=== PATIENT | female | born 1965 | race Caucasian/White ===

== ENCOUNTER → 2021-07-08 | Outpatient (CLI) | payer OTHER ==
--- NOTE | 2021-07-08 14:39 | RAD ---
PROCEDURE: US BREAST LT, MG DIAGNOSTICUNILAT MAMMO HISTORY: The patient is 55 years old and is seen for Reason: ABNORMAL MAMMO / Spl. Instructions: / H istory: . COMPARISON: May 08, 2021. The patient states there are prior mammograms in [place]. TECHNIQUE: Left breast spot compression views and ML view. Targeted left breast ultrasound. DENSITY: There are scattered fibroglandular densities. FINDINGS: Left mammogram: Well-circumscribed mass within the left breast 3:00 position measures 0.4 x 0.4 cm. T here is associated amorphous calcifications. Left breast implant noted. Left ultrasound: Hypoechoic well-circumscribed mass within the left breast 3:00 position 1 cm from th e nipple measures 0.4 x 0.3 cm. Calcification is noted. No suspicious posterior shadowing. Prominent lobulation of fat within the left breast 6 cm from the nipple 3:00 position. No suspicious posterior shadowing. IMPRESSION: 1. Hypoechoic mass within the left breast with associated calcification, may represent degenerating fibroadenoma or complicated cystic lesion. Recommend 6 month follow-up mammogram. An addendum can be made if remote prior mammograms become available for comparison. Recommend annual screening mammograms per [employer] guidelines. Patient will be due in six months. BI-RADS category 3 Probably benign Our clinic nurse has been instructed to assist with communicating findings and recommendations to the patient's referring physician and in scheduling follow-up. Patient entered into a reminder system for annual screening mammogram. Electronically signed by: Will Dumont DO (07/08/2021 2:22 PM) [id number]
== END ==
LOC: MAMMO 13:12 → EDBD 13:30
PROVIDERS: ATTEND Family Medicine
DX: N63.42 Unspecified lump in left breast, subareolar (principal); R92.2 Inconclusive mammogram
CPT/HCPCS: 76641; 77065